=== PATIENT | male | born 1960 | race Caucasian/White ===

== ENCOUNTER 2016-12-08 06:37 | Day surgery (SDC) | payer BC ==
[2016-10-27 08:11] VITALS: BMI 19.1
[2016-12-08] MEDS ORDERED: Sodium Chloride 0.9% 10 ML ONE (08:48)
[2016-12-08 08:51] LABS: Anion Gap 9 mmol/L (10-20); BUN (Urea Nitrogen) 14 mg/dL (8.4-25.7); Calc. Creatinine Clearance 95 mL/min (70-130); Calcium 9.9 mg/dL (7.8-10.44); Carbon Dioxide 31 mmol/L (22-29); Chloride 101 mmol/L (98-107); Estimated GFR-MDRD Greater than 90
[2016-12-08 08:55] LABS: Hematocrit 60.3 % (42.0-52.0); Red Blood Cell (RBC) Count 6.31 mill/uL (4.70-6.10); White Blood Cell (WBC) Count 9.3 thou/uL (4.8-10.8)
[2016-12-08] MEDS ORDERED: Fentanyl 100 MCG/2 ML VIAL ONE ×2 (08:58→11:13)
[2016-12-08] MEDS ORDERED: CEFAZOLIN/Water 2 GM/20 ML SYRINGE ONE (09:03)
[2016-12-08] MEDS ORDERED: Midazolam HCl 2 mg/2 ml Vial ONE (09:03)
[2016-12-08 09:10] LABS: Hematocrit 56.6 % (42.0-52.0); Red Blood Cell (RBC) Count 5.76 mill/uL (4.70-6.10); White Blood Cell (WBC) Count 9.9 thou/uL (4.8-10.8)
[2016-12-08] MEDS ORDERED: Glycopyrrolate 0.2 MG/ML 5 ML SYRINGE ONE (09:12)
[2016-12-08] MEDS ORDERED: Propofol 200 MG/20 ML VIAL ONE (09:12)
[2016-12-08] MEDS ORDERED: Ketorolac Tromethamine 30 MG/ML VIAL ONE (09:12)
[2016-12-08] MEDS ORDERED: Metoclopramide HCl 10 MG/2 ML VIAL ONE (09:12)
[2016-12-08] MEDS ORDERED: Ondansetron HCl/PF 4 MG/2 ML Vial ONE (09:12)
[2016-12-08] MEDS ORDERED: Lidocaine 1% PF 5 ML VIAL ONE (09:12)
--- NOTE | 2016-12-08 10:53 | OP ---
DATE OF PROCEDURE: 12/08/2016 SURGEON: Roger Corona M.D. GLOVE STITCHER: BOB Canales PROCEDURE: Left L3-4 and L4-L5 laminectomy, facetectomy, foraminotomy, interbody arthrodesis, intra vertebral biomechanical device, local morselized autograft, demineralized bone matrix, posterior lat eral arthrodesis, demineralized bone matrix, pedicle screw instrumentation L3-4, L4-5. PROCEDURE IN DETAIL: The patient was brought into the operating room, intubated. He was rolled in the prone position on gel-filled chest rolls. Incision made exposing L3 through L5 and our level wa s confirmed by x-ray. We performed complete left L4-5 and left L3-4 hemilaminectomies completely de compressing the neural elements at these levels. Next, the disk at L4-5 and L3-4 incised and debrid ed in their entirety and the bony endplates were decorticated for the purpose of arthrodesis. An ap propriately sized intravertebral biomechanical PEEK device was brought into the field, filled with d emineralized bone matrix and local morselized autograft, and tapped into place securely at L4-5 and at L3-4. Next, pedicle screws were placed at left L3, left L4 and left L5 using lateral fluoroscopi c guidance. A byron was secured between the screws. Compression was applied and the byron was affixed with nuts which were final tightened. The wound was then extensively irrigated, immaculate hemostas is was secured. A combination of demineralized bone matrix and local morselized autograft was laid over the right laminar and posterolateral surfaces for the purpose of arthrodesis. Vancomycin powde r was applied and the wound was then closed in anatomic layers.
[2016-12-08] MEDS ORDERED: HYDROcodone/Acetaminophen 10/325 mg Tablet ONE (12:45)
== END 2016-12-08 15:40 | disposition home or self-care (01) ==
LOC: SDC 06:37
PROVIDERS: ATTEND Neurological Surgery
PROC: 0SG10AJ Fusion of 2 or more Lumbar Vertebral Joints with Interbody Fusion Device, Posterior Approach, Anterior Column, Open Approach (ICD-10-PCS; principal; 2016-12-08)
PROC: 01NB0ZZ Release Lumbar Nerve, Open Approach (ICD-10-PCS; principal; 2016-12-08)
PROC: 0RB30ZZ Excision of Cervical Vertebral Disc, Open Approach (ICD-10-PCS; principal; 2016-12-08)
DX: M51.16 Intervertebral disc disorders with radiculopathy, lumbar region (principal); Z98.890 Other specified postprocedural states
CPT/HCPCS: 76001; 80048; 85027; 96374; A4216; C1713; C1768; J0131; J1170; J1885; J2001; J2250; J2405; J2704; J2765; J3010; J3370; J3490

== ENCOUNTER 2017-01-20 13:02 | Outpatient (CLI) | payer BC ==
--- NOTE | 2017-01-20 14:28 | RAD ---
FRONTAL AND LATERAL IMAGING OF THE LUMBAR SPINE: Date: 01-20-17 Comparison: 12-23-16 History: Back pain. Prior back surgery, left foot radiculopathy. Bilateral leg pain. FINDINGS: Unilateral left sided L3, L4, and L5 pedicle screws are noted with vertically oriented interlocking r ods. There is an intervertebral disc device present at L3-4 and L4-5, not significantly changed. The posterior most metallic marker of the L4-5 intervertebral disc device projects slightly further poste riorly than on the prior examination. Follow up imaging is advised to exclude motion of the disc sandor ce. No acute osseous abnormality is seen. No significant anterolisthesis or retrolisthesis. There is lowe r lumbar spine facet hypertrophy. There is anterior osteophyte formation at L2-3 and L3-4. IMPRESSION: Post-operative changes with no acute fracture or evidence of dislocation. Of note, the radiopaque mar kers associated with the disc device at L4-5 has slightly changed in position as they project further posteriorly than on the prior exam. This suggests posterior motion of the intervertebral disc device , which could be better assessed via follow up radiograph and/or lumbar spine CT myelogram. POS: [facility]
== END 2017-01-20 13:03 | disposition home or self-care (01) ==
LOC: TBSIIMAG 13:02
PROVIDERS: ATTEND Neurological Surgery
DX: M54.9 Dorsalgia, unspecified (principal); Z98.890 Other specified postprocedural states
CPT/HCPCS: 72100